=== PATIENT | female | born 1970 | race Two or more races ===

== ENCOUNTER 2025-03-14 16:12 | Inpatient (IN) | payer OTHER ==
[~2025-03-14] VITALS: Ht 152.4 cm; Wt 81.8 kg
[~2025-03-14 16:12] MED LIST: LOSA100T25 PO; MET50T PO
--- NOTE | 2025-03-14 16:27 | ECG ---
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
[2025-03-14 16:42] LABS: Hematocrit 37.9 % (36.0-46.0); Hemoglobin 12.6 g/dL (12.2-16.2); Mean Corpuscular Hemoglobin 28.7 pg (28.0-32.0); Mean Corpuscular Volume 86.3 fL (80.0-100.0); Nucleated Red Blood Cells % 0.1 %
--- NOTE | 2025-03-14 16:45 | ED.PDOC ---
HPI Comments 54 y/o obese F presents with c/c of nonradiating, substernal chest pain, intermittently, for the past 2 days. Pain worsens when laying flat on her back and on her left side and improves when sitting upright. Associated occasional shortness of breath. She reports taking ASA for the past 2 days but none, today, due to taking "cayenne pepper," instead. Denial of any abdominal pain, nausea, vomiting, or further acute symptoms. Past medical history: HLD, HTN, blood clots Past surgical history: stents, benign knee tumor removal Social history: remote tobacco abuse chest pain: bejarano:,rondon. HPI: Poor Historian. 54-year-old female presents to emergency depart for two day history of midsternal chest pain intermittent nonradiating worse when she lays flat better when she sits up. Some occasional associated shortness of breath. Patient has significant cardiac history. REVIEW OF SYSTEMS: CONSTITUTIONAL: Denies acute: fever, diaphoresis, chills, generalized weakness. HEAD: Denies acute: headache, photophobia Eyes: Denies acute: Double vision, vision loss, eye pain, eye discharge. EARS: Denies acute: tinnitus, hearing loss, ear discharge, ear pain, THROAT: Denies acute: sore throat, swelling, difficulty swallowing , pain with swallowing, change in voice. NECK: Denies acute: neck pain, neck swelling, stiff neck. HEART: Denies acute : palpitations, LUNGS: Denies acute: SOB, wheezing, cough, hemoptysis ABDOMEN: Denies acute: abdominal pain, Nausea, Vomiting, diarrhea, melena , hematemesis, hematochezia SKIN: Denies acute: rash, redness, lesions, itchiness. EXTREMITIES: Denies acute: calf pain, numbness, tingling, weakness, denies pain in extremity. Denies acute: Low back pain. Neuro: Denies acute: focal neurological deficit, motor or sensory focal neurological deficit, tremors, seizure like activity, confusion, dizziness, change in mental status, loss of bowel or bladder function, cauda equina like symptoms. : Denies acute: dysuria, hematuria, flank pain, increase in urinary frequency. PSYCH: Denies acute: hallucination, suicidal ideation, homicidal ideation. FEMALE: Denies acute: abnormal vaginal bleeding, foul odor, unusual discharge. PHYSICAL EXAM: General: ---mild-----acute distress, awake and alert. Head: normocephalic, atraumatic. No raccoon's eyes, no liriano sign. Neck: supple, trachea is midline, no swelling. Throat: Normal phonation. Eyes:, no erythema, no purulent discharge, no proptosis, no icterus. Heart: regular rate, regular rhythm, no significant murmur appreciated. Lungs: no apparent respiratory distress, Able to speak in full sentences. No wheezing, no rhonchi, no crackles. No stridors Clear to auscultation bilaterally. Abdomen: non tender to palpation, non distended, soft, no guarding, no rebound, + bowel sounds. Neuro: Awake, Alert, oriented to name, self, situation, follows commands GCS=15. Speech is normal. Skin: no petechia, no purpura, no cyanosis, non-pale, not jaundice. Lower extremities: --no - Pitting edema no deformity, no focal swelling, no calf TTP. Makes eye contact. moves all four extremities. Face: no apparent facial droop. Ambulating in the ED independently. ED COURSE: DISCLAIMER: This medical document was created using an electronic medical record system with voice recognition software and computerized dictation system. Although this document has been carefully reviewed, there might still be some phonetic and typographical errors. Occasional wrong-word or "sound-alike" substitutions may have occurred due to the inherent limitations of voice recognition software. These areas are purely typographical due to imperfections of the software programs and do not reflect any compromise in the patient's medical care. Please read the chart carefully and recognize, using context, where these substitutions have occurred. Chief Complaint: Chest Pain Time Seen by MD: 16:30 Allergies: Coded Allergies: NO KNOWN ALLERGIES (Unverified , 04/08/23) Information Source: Patient Mode of Arrival: Ambulatory EKG EKG : Pulse Rate (adult): 75 [place]: Normal Cardiac Rhythm: NSR Block: None Hypertrophy: None ST: Normal Was a procedure done? Was a procedure done?: No X-Ray, Labs, Meds, VS Vital Signs Date Time Temp Pulse Resp B/P (MAP) Pulse Ox O2 Delivery O2 Flow Rate FiO2 03/14/25 19:22 64 03/14/25 19:00 98.4 60 18 152/81 (104) 99 98.4 03/14/25 19:00 60 18 99 Room Air* 0 21 03/14/25 17:30 68 03/14/25 16:45 75 03/14/25 16:26 75 03/14/25 16:17 98.3 67 18 173/71 98 98.3 Lab Test 03/14/25 19:41 03/14/25 19:02 03/14/25 16:31 Range/Units Urine Color Colorless Yellow Urine Clarity Clear Clear Urine pH 7.0 5.0-9.0 Urine Specific [place] 1.016 1.001-1.035 Urine Protein Negative Negative Urine Ketones Negative Negative Urine Blood Negative Negative /uL Urine Nitrite Negative Negative Urine Bilirubin Negative Negative Urine Urobilinogen Normal Negative mg/dL Urine Leukocyte Esterase Negative Negative /uL Urine RBC 1 0 - 4 /hpf Urine Microscopic WBC < 1 0-5 /HPF Urine Squamous Epithelial Cells Few <5 /hpf Urine Bacteria None seen None Seen /hpf Urine Glucose Normal Normal mg/dL Troponin I High Sensitivity 1041 *H 654 *H </=34 ng/L White Blood Count 5.0 4.4-10.8 10^3/uL Red Blood Count 4.39 4.0-5.20 10^6/uL Hemoglobin 12.6 12.2-16.2 g/dL Hematocrit 37.9 36.0-46.0 % Mean Corpuscular Volume 86.3 80.0-100.0 fL Mean Corpuscular Hemoglobin 28.7 28.0-32.0 pg Mean Corpuscular Hemoglobin Concent 33.3 32.0-36.0 g/dL Red Cell Distribution Width 14.8 H 11.8-14.3 % Platelet Count 233 140-450 10^3/uL Mean Platelet Volume 9.6 6.9-10.8 fL Neutrophils (%) (Auto) 41.9 37.0-80.0 % Lymphocytes (%) (Auto) 48.2 10.0-50.0 % Monocytes (%) (Auto) 6.7 0.0-12.0 % Eosinophils (%) (Auto) 1.6 0.0-7.0 % Basophils (%) (Auto) 1.6 0.0-2.0 % Neutrophils # (Auto) 2.1 1.6-8.6 10 ^3/uL Lymphocytes # (Auto) 2.4 0.4-5.4 10 ^3/uL Monocytes # (Auto) 0.3 0-1.3 10 ^3/uL Eosinophils # (Auto) 0.1 0-0.8 10 ^3/uL Basophils # (Auto) 0.1 0-0.2 10 ^3/uL Nucleated Red Blood Cells 0.1 % Prothrombin Time 10.1 9.3-11.8 sec Prothrombin Time INR 0.95 0.9-1.15 Activated Partial Thromboplast Time 27.6 24.5-34.5 SEC Sodium Level 138 136-145 mmol/L Potassium Level 4.1 3.5-5.1 mmol/L Chloride Level 102 98-107 mmol/L Carbon Dioxide Level 28 20-31 mmol/L Anion Gap 8 5-15 Blood Urea Nitrogen 10 9-23 mg/dL Creatinine 0.77 0.550-1.02 mg/dL Glomerular Filtration Rate Calc 91 >90 mL/min BUN/Creatinine Ratio 13.0 10.0-20.0 Serum Glucose 137 H 74-106 mg/dL Calcium Level 9.8 8.7-10.4 mg/dL Current Medications Medications (Trade) Dose Ordered Sig/Sanket Route Start Time Stop Time Status Last Admin Aspirin (Ecotrin Enteric Coated Tablet) 325 mg ONCE ONCE PO 03/14/25 17:00 03/14/25 17:21 DC 03/14/25 17:34 [place] [id number] Ph: [phone] DIAGNOSTIC IMAGING Diagnostic Imaging Report : [id number] Signed PATIENT: MARIAELENA BEJARANO ACCT: [id number] UNIT: [id number] : 1970 LOC: ER ROOM / BED: / AGE / SEX: 54 / F ADM STATUS: REG ER SERVICE 2104 ORDERING PHYSICIAN: NOLAN HATFIELD MD PROCEDURE(s): CXR1 - CHEST XRAY 1 VIEW REASON: CHEST PAIN ORDER NUMBER(s): [id number], ACCESSION NUMBER(s): [id number] CHEST RADIOGRAPH INDICATION: CHEST PAIN TECHNIQUE: XY CHEST XRAY 1 VIEW Comparison: None FINDINGS: The cardiac silhouette is unremarkable. The lungs demonstrate no pulmonary airspace consolidation. The pulmonary vasculature is prominent. There is no pleural effusion. There is no pneumothorax. Aortic atherosclerotic disease. IMPRESSION: Mild pulmonary vasculature congestion. ATED BY: HEAVENLY GARZA MD DICTATED DATE/TIME: 03/14/251751 SIGNED BY: HEAVENLY GARZA MD SIGNED DATE/TIME: 03/14/251751 CC: Time of 1ST Reevaluation: 16:30 Reevaluation 1ST: Unchanged Time of 2ND Reevaluation: 17:34 (The case was discussed with the [facility] admitting team (HPI, physical exam, labs and diagnostic tests that were available at the time of disposition, ED course, treatment plan) on the phone. They authorized us to keep the patient in our facility for further evaluation and treatment. Patient has NSTEMI. Dr. Contreras--. Authorization number is-- [id number].) Time of 3RD Reevaluation: 20:00 (The case was discussed with the cardiology on- call team (HPI, physical exam, labs and diagnostic tests that were available at the time of disposition, ED course, treatment plan) on the phone. They agreed to follow the patient in consult dr. Pierre. They recommended heparin bolus and a drip. He reviewed the EKG.) Patient Education/Counseling: Diagnosis, Treatment Family Education/Counseling: No Family Present SEPSIS Sepsis Screen Date sepsis recognized/suspect: Mar 14, 2025 Time Sepsis recognized/suspect: 1620 Recent Procedure: No On Antibiotic Therapy: No Respiratory Rate >20: No Heart Rate >90: No Temp<36 C (96.8 F) or >38.3 C: No SBP <90 or MAP <65 mmHG: No New Acute Mental Status Change: No Is the patient on CPAP, BIPAP,: No Physician Orders Chest Xray 1 View (03/14/25 16:21) Troponin-I Hs (03/14/25 19:21) Electrocardigram (03/14/25 19:21) * Cardiology Consult (03/14/25 19:48) Vital Signs Date Time Temp Pulse Resp B/P (MAP) Pulse Ox O2 Delivery O2 Flow Rate FiO2 03/14/25 19:22 64 03/14/25 19:00 98.4 60 18 152/81 (104) 99 98.4 03/14/25 19:00 60 18 99 Room Air* 0 21 03/14/25 17:30 68 03/14/25 16:45 75 03/14/25 16:26 75 03/14/25 16:17 98.3 67 18 173/71 98 98.3 Laboratory Tests Test 03/14/25 16:31 White Blood Count 5.0 10^3/uL (4.4-10.8) Medications Medications Dose Ordered Sig/Sanket Route Start Time Stop Time Status Last Admin Dose Admin Aspirin 325 mg ONCE ONCE PO 03/14/25 17:00 03/14/25 17:21 DC 03/14/25 17:34 Departure 1 Departure Time of Disposition: 16:57 Impression: Primary Impression: Chest pain Additional Impression: NSTEMI (non-ST elevated myocardial infarction) Disposition: ADMITTED INPATIENT Admit to: [facility] Condition: Guarded Discharged With: Self Critical Care Note Critical Care Time?: No Heart Score Heart Score: Heart Score Response (Comments) Value History Slightly Suspicious 0 EKG Normal 0 Age 45-64 1 Risk Factors >3 or Hx ASHD 2 Total 3 I personally scribed for HARRY SEGURA DO ([email or web address]) on 03/14/25 at 16:45. Electronically submitted by Pasha Keller ([email or web address]). I personally scribed for HARRY SEGURA DO ([email or web address]) on 03/14/25 at 17:12. Electronically submitted by Pasha Keller ([email or web address]). I personally scribed for HARRY SEGURA DO ([email or web address]) on 03/14/25 at 21:40. Electronically submitted by Kimberlyn Walters ([email or web address]). HARRY SEGURA DO Mar 14, 2025 16:45
[2025-03-14 16:49] LABS: Chloride 102 mmol/L (98-107); Potassium 4.1 mmol/L (3.5-5.1); Sodium 138 mmol/L (136-145)
[2025-03-14 16:50] LABS: Anion Gap 8 (5-15); Calcium 9.8 mg/dL (8.7-10.4); Carbon Dioxide 28 mmol/L (20-31)
[2025-03-14 16:55] LABS: BUN/Creatinine Ratio 13.0 (10.0-20.0); Blood Urea Nitrogen 10 mg/dL (9-23)
[2025-03-14 16:56] LABS: Glucose 137 mg/dL (74-106)
[2025-03-14] MEDS: ASPirin-EC 325mg tab PO ONE (17:34)
--- NOTE | 2025-03-14 17:54 | DVH ---
CHEST RADIOGRAPH INDICATION: CHEST PAIN TECHNIQUE: XY CHEST XRAY 1 VIEW Comparison: None FINDINGS: The cardiac silhouette is unremarkable. The lungs demonstrate no pulmonary airspace consolidation. The pulmonary vasculature is prominent. There is no pleural effusion. There is no pneumothorax. Aortic atherosclerotic disease. IMPRESSION: Mild pulmonary vasculature congestion.
[2025-03-14 19:00] VITALS: PULSE 60; RESP 18; O2SAT 99
--- NOTE | 2025-03-14 19:26 | ECG ---
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
[2025-03-14 20:00] VITALS: PULSE 56; RESP 18; O2SAT 100
[2025-03-14 20:00] LABS: Urine Protein, UAD Negative (Negative)
[2025-03-14] MEDS ORDERED: ACETAMINOPHEN 325 MG TAB PO PRN (20:00)
[2025-03-14] MEDS ORDERED: HEPARIN SODIUM (PORCINE) 5000 UNITS/ML 1ML VIAL IV ONE ×3 (20:00→21:00)
[2025-03-14] MEDS ORDERED: MORPHINE SULFATE INJ 2 MG/ml SYRG IV PRN (20:00)
[2025-03-14] MEDS ORDERED: NITROGLYCERIN 0.4 MG SL TAB SL PRN (20:00)
[2025-03-14] MEDS ORDERED: HEPARIN DRIP/D5W 100UNITS/ML 250 ML IV SCH ×2 (20:00→21:00)
[2025-03-14] MEDS ORDERED: ONDANSETRON HCL 4 MG/2 ML VIAL IV PRN (20:00)
[2025-03-14 20:24] LABS: Hematocrit 39.0 % (36.0-46.0); Hemoglobin 12.8 g/dL (12.2-16.2); Mean Corpuscular Hemoglobin 28.5 pg (28.0-32.0); Mean Corpuscular Volume 87.0 fL (80.0-100.0)
[2025-03-14 20:40] LABS: INR 0.95 (0.9-1.15); Partial Thromboplastin Time 27.6 SEC (24.5-34.5); Prothrombin Time 10.1 sec (9.3-11.8)
[2025-03-14 21:39] LABS: Total Cells Counted 100.0 (100)
[2025-03-14] MEDS: SODIUM CHLOR 0.9% PF (SALINE LOCK) 10ML VIAL/SYR IV SCH (22:00)
--- NOTE | 2025-03-14 22:11 | DVHHP2 ---
History of Present Illness Reason for Visit: Chest pain History of Present Illness 54-year-old female presents for evaluation of chest pain. Patient reports a two day history of substernal pressure-like nonradiating chest pain with associated shortness for breath. No nausea or vomiting. Patient reports pain worsens when laying flat and sees improvement when sitting up. Currently rates the pain at 3/10 intensity. Past Medical History Hypertension, dyslipidemia, Past Surgical History PTCA, tumor removal Smoke: No ALCOHOL: none Drugs: None Lives: with Family Review of Systems Review of Systems Review of systems are currently negative otherwise addressed in HPI. Allergies: Coded Allergies: NO KNOWN ALLERGIES (Unverified , 04/08/23) Medications Current Medications Medications Dose Ordered Sig/Sanket Route Start Time Stop Time Status Last Admin Dose Admin Heparin Sodium/ Dextrose 250 ml @ 9.216 mls/ hr Q24H IV 03/14/25 20:00 UNV Metoprolol Tartrate 50 mg BID PO 03/14/25 22:00 Losartan Potassium 50 mg DAILY PO 03/15/25 10:00 Ondansetron HCl 4 mg Q4HP PRN IV 03/14/25 20:00 Acetaminophen 650 mg Q6HP PRN PO 03/14/25 20:00 Nitroglycerin 0.4 mg Q5MINP PRN SL 03/14/25 20:00 Morphine Sulfate 2 mg Q30M PRN IV 03/14/25 20:00 Sodium Chloride 10 ml Q8HR IV 03/14/25 22:00 Aspirin 81 mg DAILY PO 03/16/25 10:00 Heparin Sodium/ Dextrose 250 ml @ 9 mls/hr Q24H IV 03/14/25 21:00 Exam Vital Signs Vital Signs Date Time Temp Pulse Resp B/P (MAP) Pulse Ox O2 Delivery O2 Flow Rate FiO2 03/14/25 20:00 56 03/14/25 20:00 98.2 18 165/88 (113) 100 98.2 03/14/25 20:00 Room Air* 0 21 Exam Gen: 54-year-old female in mild distress Skin: Warm, dry, normal color and texture, no rash. HEENT: Normocephalic atraumatic, mucous membranes moist and pink. Neck: Cervical and supraclavicular nodes normal without enlargement, trachea is midline, thyroid gland is normal without masses. Pulmonary: Clear to auscultation and percussion bilaterally. Cardiac: Regular rate and rhythm. No murmur Abdomen: Soft, nontender, nondistended, bowel sounds present all 4 quadrants, no guarding, no rigidity, no organomegaly. Extremities: No cyanosis, clubbing, no edema Neuro: Cranial nerves II through XII grossly intact, normal affect and speech, no focal motor deficits. Labs/Xrays AGE / SEX: 54 / F ADM STATUS: REG ER SERVICE 1621 ORDERING PHYSICIAN: NOLAN HATFIELD MD PROCEDURE(s): CXR1 - CHEST XRAY 1 VIEW REASON: CHEST PAIN ORDER NUMBER(s): [id number], ACCESSION NUMBER(s): [id number] CHEST RADIOGRAPH INDICATION: CHEST PAIN TECHNIQUE: XY CHEST XRAY 1 VIEW Comparison: None FINDINGS: The cardiac silhouette is unremarkable. The lungs demonstrate no pulmonary airspace consolidation. The pulmonary vasculature is prominent. There is no pleural effusion. There is no pneumothorax. Aortic atherosclerotic disease. IMPRESSION: Mild pulmonary vasculature congestion. Labs Test 03/14/25 21:20 03/14/25 20:06 03/14/25 19:41 03/14/25 16:31 Range/Units Troponin I High Sensitivity 1346 *H </=34 ng/L White Blood Count 5.8 4.4-10.8 10^3/uL Red Blood Count 4.48 4.0-5.20 10^6/uL Hemoglobin 12.8 12.2-16.2 g/dL Hematocrit 39.0 36.0-46.0 % Mean Corpuscular Volume 87.0 80.0-100.0 fL Mean Corpuscular Hemoglobin 28.5 28.0-32.0 pg Mean Corpuscular Hemoglobin Concent 32.8 32.0-36.0 g/dL Red Cell Distribution Width 14.8 H 11.8-14.3 % Platelet Count 212 140-450 10^3/uL Mean Platelet Volume 9.6 6.9-10.8 fL Neutrophils (%) (Auto) 37.0-80.0 % Lymphocytes (%) (Auto) 10.0-50.0 % Monocytes (%) (Auto) 0.0-12.0 % Basophils (%) (Auto) 0.0-2.0 % Neutrophils # (Auto) 1.6-8.6 10 ^3/uL Lymphocytes # (Auto) 0.4-5.4 10 ^3/uL Monocytes # (Auto) 0-1.3 10 ^3/uL Differential Total Cells Counted 100.0 100 Neutrophils % (Manual) 31 L 37.0-80.0 Band Neutrophils % (Manual) 0 Lymphocytes % (Manual) 58 H 10.0-50.0 Monocytes % (Manual) 8 0-12 Eosinophils % (Manual) 3 0-7 Basophils % (Manual) 0 0.0-2.0 Metamyelocytes % (manual) 0 Myelocytes % (Manual) 0 Promyelocytes % (Manual) 0 Blast Cells % (Manual) 0 Reactive Lymphocytes 0 Platelet Estimate Adequate Urine Color Colorless Yellow Urine Clarity Clear Clear Urine pH 7.0 5.0-9.0 Urine Specific [place] 1.016 1.001-1.035 Urine Protein Negative Negative Urine Ketones Negative Negative Urine Blood Negative Negative /uL Urine Nitrite Negative Negative Urine Bilirubin Negative Negative Urine Urobilinogen Normal Negative mg/dL Urine Leukocyte Esterase Negative Negative /uL Urine RBC 1 0 - 4 /hpf Urine Microscopic WBC < 1 0-5 /HPF Urine Squamous Epithelial Cells Few <5 /hpf Urine Bacteria None seen None Seen /hpf Urine Glucose Normal Normal mg/dL Eosinophils (%) (Auto) 1.6 0.0-7.0 % Eosinophils # (Auto) 0.1 0-0.8 10 ^3/uL Basophils # (Auto) 0.1 0-0.2 10 ^3/uL Nucleated Red Blood Cells 0.1 % Prothrombin Time 10.1 9.3-11.8 sec Prothrombin Time INR 0.95 0.9-1.15 Activated Partial Thromboplast Time 27.6 24.5-34.5 SEC Sodium Level 138 136-145 mmol/L Potassium Level 4.1 3.5-5.1 mmol/L Chloride Level 102 98-107 mmol/L Carbon Dioxide Level 28 20-31 mmol/L Anion Gap 8 5-15 Blood Urea Nitrogen 10 9-23 mg/dL Creatinine 0.77 0.550-1.02 mg/dL Glomerular Filtration Rate Calc 91 >90 mL/min BUN/Creatinine Ratio 13.0 10.0-20.0 Serum Glucose 137 H 74-106 mg/dL Calcium Level 9.8 8.7-10.4 mg/dL SEPSIS Sepsis Screen Date sepsis recognized/suspect: Mar 14, 2025 Time Sepsis recognized/suspect: 2119 Recent Procedure: No On Antibiotic Therapy: No Respiratory Rate >20: No Heart Rate >90: No Temp<36 C (96.8 F) or >38.3 C: No SBP <90 or MAP <65 mmHG: No New Acute Mental Status Change: No Is the patient on CPAP, BIPAP,: No Physician Orders Chest Xray 1 View (03/14/25 16:21) Electrocardigram (03/14/25 19:21) * Cardiology Consult (03/14/25 19:48) Platelet Monitoring (03/14/25) Heparin Per Standardized Proce (03/14/25:) Discontinue All Im Injections (03/14/25:49) Heparin Drip/D5w 100units/Ml (03/14/25 20:00) Stat Ekg For Chest Pain (03/14/25:49) Npo After Midnight (03/14/25:49) Basic Metabolic Panel (03/15/25 04:00) Metoprolol Tartrate Tablet (Lopressor Ta (03/14/25 22:00) Losartan Tablet (Cozaar Tablet) (03/15/25 10:00) Admit (03/14/25:49) Ondansetron Hcl (Zofran) (03/14/25 20:00) Cardiac Diet-2gna,Lofat,Lochol (03/15/25 Breakfast) Echo 2d Mode Cardiac Dop (03/14/25:49) Condition: Fair (03/14/25:49) Acetaminophen Tablet (Tylenol Tablet) (03/14/25 20:00) Bedrest With Bathroom Privileg (03/14/25:49) Nitroglycerin Sublingual (Ntrostat Subli (03/14/25 20:00) Morphine Sulfate Injection (03/14/25 20:00) Stat Ekg For Chest Pain (03/14/25:49) Notify Md Of Changes From Base (03/14/25 19:49) Network Operations Lead For 24 Hours (03/14/25:49) Emergency Dysrhythmia Protocol (12/19/25 19:49) Rhythm Strips Once Every Shift (03/14/25 19:49) Oxygen By Nasal Cannula (03/14/25 19:49) Pressurization Mechanic (03/14/25 19:58) Blood Pressure (03/14/25 19:58) Pulse Oximetry (03/14/25 19:58) Sodium Chloride Lock (Saline Lock Ns) (03/14/25 22:00) Aspirin Chewable Tablet (03/16/25 10:00) Heparin Drip/D5w 100units/Ml (03/14/25 21:00) Oxygen Per Hour (03/14/25 19:58) Cardiac Rehabilitation - Outpa (03/14/25 ) Vital Signs Date Time Temp Pulse Resp B/P (MAP) Pulse Ox O2 Delivery O2 Flow Rate FiO2 03/14/25 20:00 56 03/14/25 20:00 98.2 56 18 165/88 (113) 100 98.2 03/14/25 20:00 56 18 100 Room Air* 0 21 03/14/25 19:22 64 03/14/25 19:00 98.4 60 18 152/81 (104) 99 98.4 03/14/25 19:00 60 18 99 Room Air* 0 21 03/14/25 17:30 68 03/14/25 16:45 75 03/14/25 16:26 75 03/14/25 16:17 98.3 67 18 173/71 98 98.3 Laboratory Tests Test 03/14/25 16:31 03/14/25 20:06 White Blood Count 5.0 10^3/uL (4.4-10.8) 5.8 10^3/uL (4.4-10.8) Medications Medications Dose Ordered Sig/Sanket Route Start Time Stop Time Status Last Admin Dose Admin Aspirin 325 mg ONCE ONCE PO 03/14/25 17:00 03/14/25 17:21 DC 03/14/25 17:34 325 MG Assessment/Plan Assessment/Plan Assessment NSTEMI Hypertension Plan Admit the patient to telemetry to the hospitalist Cardiology consultation placed by ER provider Continue heparin drip NPO after midnight Continue treatment per orders. Plan discussed with: Patient My Orders Orders - REGINALD GREENFIELD Procedure Category Date Status Time Platelet Monitoring BLAISE 03/14/25 In Process 19:49 Heparin Per BLAISE 03/14/25 In Process Standardized Proce 19:49 Discontinue All Im BLAISE 03/14/25 In Process Injections 19:49 Heparin Drip/D5w PHA 03/14/25 Pending 100units/Ml 20:00 Stat Ekg For Chest BLAISE 03/14/25 In Process Pain 19:49 Npo After Midnight BLAISE 03/14/25 In Process 19:49 Basic Metabolic Panel LAB 03/15/25 Verified 04:00 Metoprolol Tartrate PHA 03/14/25 In Process Tablet (Lopressor Ta 22:00 Losartan Tablet PHA 03/15/25 In Process (Cozaar Tablet) 10:00 Admit ADMIT 03/14/25 Transmitted 19:49 Ondansetron Hcl PHA 03/14/25 In Process (Zofran) 20:00 Cardiac DIET 03/15/25 Transmitted Diet-2gna,Lofat,Lochol Breakfast Echo 2d Mode Cardiac US 03/14/25 Logged DOP 19:49 Condition: Fair BLAISE 03/14/25 In Process 19:49 Acetaminophen Tablet PHA 03/14/25 In Process (Tylenol Tablet) 20:00 Bedrest With Bathroom [facility] 03/14/25 In Process Privileg 19:49 Nitroglycerin [facility] 03/14/25 In Process Sublingual (Ntrostat 20:00 Morphine Sulfate PHA 03/14/25 In Process Injection 20:00 Stat Ekg For Chest BLAISE 03/14/25 In Process Pain 19:49 Notify Of Changes [facility] 03/14/25 In Process From Base 19:49 Network Operations Lead For [facility] 03/14/25 In Process 24 Hours 19:49 Emergency Dysrhythmia [facility] 03/14/25 In Process Protocol 19:49 Rhythm Strips Once [facility] 03/14/25 In Process Every Shift 19:49 Oxygen By Nasal RT 03/14/25 Transmitted Cannula 19:49 Date of Service: Mar 14, 2025 Billing Provider: REGINALD GREENFIELD Common Visit Codes: [id number] INP/OBS CARE (HIGH) REGINALD GREENFIELD Mar 14, 2025 22:11
[2025-03-14 22:15] VITALS: BP 153/90; PULSE 60; RESP 17; TEMP 98; O2SAT 97
[2025-03-14] MEDS ORDERED: hydrALAZINE HCL 20 MG/ML VL IV PRN (22:15)
[2025-03-14 22:42] LABS: HDL Cholesterol 58 mg/dL (40-59)
[2025-03-14 22:43] LABS: Cholesterol 427 mg/dL (< 200); Triglycerides 161 mg/dL (< 150)
[2025-03-14] MEDS: HEPARIN SODIUM (PORCINE) 5000 UNITS/ML 1ML VIAL IV ONE (23:14)
[2025-03-14] MEDS: HEPARIN DRIP/D5W 100UNITS/ML 250 ML IV SCH (23:21)
[2025-03-14] MEDS: METOPROLOL TARTRATE 50 MG TAB PO SCH (23:33)
[2025-03-15] VITALS (9 sets, daily range): BP systolic 109–168; BP diastolic 63–98; PULSE 58–73; RESP 16–20; TEMP 97.6–98.5; O2SAT 97–98
[2025-03-15 05:33] LABS: Nucleated Red Blood Cells % 0.1 %
[2025-03-15 05:36] LABS: Hematocrit 35.7 % (36.0-46.0); Hemoglobin 11.9 g/dL (12.2-16.2); Mean Corpuscular Hemoglobin 28.8 pg (28.0-32.0); Mean Corpuscular Volume 86.5 fL (80.0-100.0)
[2025-03-15 05:47] LABS: Calcium 9.4 mg/dL (8.7-10.4); Chloride 103 mmol/L (98-107); Potassium 4.1 mmol/L (3.5-5.1); Sodium 139 mmol/L (136-145)
[2025-03-15 05:49] LABS: Anion Gap 10 (5-15); Carbon Dioxide 26 mmol/L (20-31)
[2025-03-15 05:54] LABS: BUN/Creatinine Ratio 13.3 (10.0-20.0); Blood Urea Nitrogen 10 mg/dL (9-23)
[2025-03-15 05:55] LABS: Glucose 112 mg/dL (74-106)
[2025-03-15 06:13] LABS: INR 0.98 (0.9-1.15); Prothrombin Time 10.4 sec (9.3-11.8)
[2025-03-15 06:31] LABS: Partial Thromboplastin Time 87.0 SEC (24.5-34.5)
[2025-03-15] MEDS: HEPARIN DRIP/D5W 100UNITS/ML 250 ML IV SCH (06:58)
--- NOTE | 2025-03-15 09:44 | DVHINCON2 ---
Date Seen: Mar 15, 2025 Referring Physician MD Marysol Reason for Consultation Chest pain, NSTEMI History of Present Illness This is a 54-year-old female who presented to the emergency room with a chief complaint of chest pain for three days. Describes her chest pain as substernal, radiating to the neck area, squeezing/pressure-like, intermittent, and associated with mild shortness of breath. She underwent multiple 12 lead electrocardiogram revealing a sinus rhythm with ST depression to inferolateral leads. Serial troponin levels are trending up with latest in the 1,700s ng/L. Denied any active chest pain at time of assessment. She is currently on a heparin drip. Reports a significant medical history for cardiovascular disease including severe coronary artery disease undergoing a successful PTCA with sten placement x 2DES at [facility] in 2018 followed by a PTCA with stent placement x 1 JESSIE at an unknown facility in 2019. She was initially on DAPT then on ASA only which she stopped on her own approximately 8 mos ago. Denies following up in the outpatient setting with a primary equipment sterilizer. Other medical history includes hypertension, dyslipidemia, and obesity Past Medical History Past medical history reviewed. No other significant than mentioned above. Past Surgical History PTCAs x2 including three JESSIE, Right knee (tumor removal) Audelia birch Family History: Diabetes mellitus aunt grandmother FH: CHF (congestive heart failure) mother Family History Family history reviewed. Social History Denies the use of illicit drugs, alcohol, or tobacco use. Reports remote history of cigarette use, quit in 2010. Allergies: Coded Allergies: NO KNOWN ALLERGIES (Unverified , 04/08/23) Home Meds Home medications reviewed. Current Medications Current Medications Medications (Trade) Dose Ordered Sig/Sanket Route PRN Reason Start Time Stop Time Status Last Admin Heparin Sodium/ Dextrose 250 ml @ 9.216 mls/ hr Q24H IV 03/14/25 20:00 Cancel Metoprolol Tartrate (Lopressor Tablet) 50 mg BID PO 03/14/25 22:00 03/14/25 23:33 Losartan Potassium (Cozaar Tablet) 50 mg DAILY PO 03/15/25 10:00 Ondansetron HCl (Zofran) 4 mg Q4HP PRN IV NAUSEA / VOMITING 03/14/25 20:00 Acetaminophen (Tylenol Tablet) 650 mg Q6HP PRN PO PAIN SCALE 1-3 OR TEMP>100.4 03/14/25 20:00 Nitroglycerin (Ntrostat Sublingual) 0.4 mg Q5MINP PRN SL FOR CHEST PAIN 03/14/25 20:00 Morphine Sulfate 2 mg Q30M PRN IV FOR CHEST PAIN 03/14/25 20:00 Sodium Chloride (Saline Lock Ns) 10 ml Q8HR IV 03/14/25 22:00 03/15/25 06:00 Aspirin 81 mg DAILY PO 03/16/25 10:00 Heparin Sodium/ Dextrose 250 ml @ 9 mls/hr Q24H IV 03/14/25 21:00 Cancel Hydralazine HCl (Apresoline Injection) 10 mg Q6HP PRN IV SBP>150 03/14/25 22:15 Heparin Sodium/ Dextrose 250 ml @ 9 mls/hr Q24H IV 03/14/25 23:00 03/15/25 06:34 DC 03/14/25 23:21 Heparin Sodium/ Dextrose 250 ml @ 7 mls/hr Q24H IV 03/15/25 06:45 03/15/25 06:58 Review of Systems Constitutional: No symptom reported Ears, Nose, & Throat: No symptom reported Eyes: No symptom reported Neurological: No symptoms reported Pulmonary/Respiratory: SOB Cardiovascular: Chest pain Gastrointestinal: No symptom reported Genitourinary: No symptom reported Musculoskeletal: No symptom reported Skin: No symptom reported Psychiatric: No symptom reported Endocrine: No symptom reported Hemotologic/Lymphatic: No symptom reported Vital Signs Vital Signs Date Time Temp Pulse Resp B/P (MAP) Pulse Ox O2 Delivery O2 Flow Rate FiO2 03/15/25 08:58 98.5 66 16 122/67 (85) 98 98.5 03/14/25 22:15 Room Air* 0 21 Physical Exam General Appearance: Cooperative. Well developed. Obese. In no acute distress Head Exam: Normal inspection Neck Exam: Normal inspection. Non-tender. Normal alignment Pulmonary/Respiratory: Chest non-tender. Diminished bilateral breath sounds Cardiovascular/Chest: Regular rate and rhythm. S1, S2. Sinus rhythm with ST depression to inferolateral leads. No murmurs. No JVD. Peripheral Pulses: 2+ Radial (R). 2+ Radial (L). 2+ Pedal (R). 2+ Pedal (L) Abdominal Exam: Normal bowel sounds. Soft. Ankle Exam: Negative ankle edema Lower extremities: Negative lower extremity edema Neuro/Mental Status: A&O x4. Coherent Thoughts/Psych: Normal thought pattern. Appropriate mood and affect. Good judgement and insight Appearance: In no acute distress Skin Exam: Normal inspection. Normal color. Warm. Dry Labs/Diagnostic Data Labs Test 03/15/25 04:21 03/14/25 20:06 03/14/25 19:41 Range/Units White Blood Count 6.2 4.4-10.8 10^3/uL Red Blood Count 4.12 4.0-5.20 10^6/uL Hemoglobin 11.9 L 12.2-16.2 g/dL Hematocrit 35.7 L 36.0-46.0 % Mean Corpuscular Volume 86.5 80.0-100.0 fL Mean Corpuscular Hemoglobin 28.8 28.0-32.0 pg Mean Corpuscular Hemoglobin Concent 33.3 32.0-36.0 g/dL Red Cell Distribution Width 14.6 H 11.8-14.3 % Platelet Count 189 140-450 10^3/uL Mean Platelet Volume 10.6 6.9-10.8 fL Neutrophils (%) (Auto) 26.9 L 37.0-80.0 % Lymphocytes (%) (Auto) 62.7 H 10.0-50.0 % Monocytes (%) (Auto) 7.4 0.0-12.0 % Eosinophils (%) (Auto) 2.3 0.0-7.0 % Basophils (%) (Auto) 0.7 0.0-2.0 % Neutrophils # (Auto) 1.7 1.6-8.6 10 ^3/uL Lymphocytes # (Auto) 3.9 0.4-5.4 10 ^3/uL Monocytes # (Auto) 0.5 0-1.3 10 ^3/uL Eosinophils # (Auto) 0.1 0-0.8 10 ^3/uL Basophils # (Auto) 0 0-0.2 10 ^3/uL Nucleated Red Blood Cells 0.1 % Prothrombin Time 10.4 9.3-11.8 sec Prothrombin Time INR 0.98 0.9-1.15 Activated Partial Thromboplast Time 87.0 *H 24.5-34.5 SEC Sodium Level 139 136-145 mmol/L Potassium Level 4.1 3.5-5.1 mmol/L Chloride Level 103 98-107 mmol/L Carbon Dioxide Level 26 20-31 mmol/L Anion Gap 10 5-15 Blood Urea Nitrogen 10 9-23 mg/dL Creatinine 0.75 0.550-1.02 mg/dL Glomerular Filtration Rate Calc 94 >90 mL/min BUN/Creatinine Ratio 13.3 10.0-20.0 Serum Glucose 112 H 74-106 mg/dL Calcium Level 9.4 8.7-10.4 mg/dL Differential Total Cells Counted 100.0 100 Neutrophils % (Manual) 31 L 37.0-80.0 Band Neutrophils % (Manual) 0 Lymphocytes % (Manual) 58 H 10.0-50.0 Monocytes % (Manual) 8 0-12 Eosinophils % (Manual) 3 0-7 Basophils % (Manual) 0 0.0-2.0 Metamyelocytes % (manual) 0 Myelocytes % (Manual) 0 Promyelocytes % (Manual) 0 Blast Cells % (Manual) 0 Reactive Lymphocytes 0 Platelet Estimate Adequate D-Dimer, Quantitative 0.85 H 0.0-0.49 mg/L FEU B-Type Natriuretic Peptide 60.63 0-100 pg/mL Triglycerides Level 161 H < 150 mg/dL Cholesterol Level 427 H < 200 mg/dL LDL Cholesterol 371 H < 100 mg/dL HDL Cholesterol 58 40-59 mg/dL Thyroid Stimulating Hormone (TSH) 2.25 0.55-4.78 uIU/mL Urine Color Colorless Yellow Urine Clarity Clear Clear Urine pH 7.0 5.0-9.0 Urine Specific [place] 1.016 1.001-1.035 Urine Protein Negative Negative Urine Ketones Negative Negative Urine Blood Negative Negative /uL Urine Nitrite Negative Negative Urine Bilirubin Negative Negative Urine Urobilinogen Normal Negative mg/dL Urine Leukocyte Esterase Negative Negative /uL Urine RBC 1 0 - 4 /hpf Urine Microscopic WBC < 1 0-5 /HPF Urine Squamous Epithelial Cells Few <5 /hpf Urine Bacteria None seen None Seen /hpf Urine Glucose Normal Normal mg/dL Assessment Non ST-elevation myocardial infarction, type 1 Rule out structural heart disease Diabetes mellitus (hemoglobin A1c 7.3%), newly diagnosed Hypertension Dyslipidemia Remote Hx of tobacco use Suboptimal medical therapy Obesity Plan/Recommendation (Dr. Pierre) Scheduled for cardiac catheterization and coronary angiogram on 03/17/2025. All risks and benefits of the procedure were discussed in full detail with the patient agreeing for intervention. All questions answered. In the meantime, continue heparin drip, DAPT, and BB XL. Loaded on ASA and clopidogrel. Monitor ECG changes closely and notify accordingly. Continue ACS protocol. Further orders per clinical course. Thank you for allowing us to participate in this patient's care. Please call if you have any questions or concerns. This medical document was created using an electronic medical record system with voice recognition software and computerized dictation system. Although this document has been carefully reviewed, there might still be some phonetic and typographical errors. Occasional wrong-word or ``sound-alike substitutions may have occurred due to the inherent limitations of voice recognition software. These areas are purely typographical due to imperfections of the software programs and do not reflect any compromise in the patient's medical care. Please read the chart carefully and recognize, using context, where these substitutions have occurred. Plan discussed with: Patient, Other NYHA Physical activity limitations: NA Date of Service: Mar 15, 2025 Billing Provider: ARCENIO SIEGEL Cardiology Common Codes: [id number] CARE 30-74 MIN ARCENIO SIEGEL Mar 15, 2025 09:44
[2025-03-15] MEDS: LOSARTAN POTASSIUM 50 MG TAB PO SCH (11:24)
[2025-03-15 13:53] LABS: INR 1.0 (0.9-1.15); Partial Thromboplastin Time 52.7 SEC (24.5-34.5); Prothrombin Time 10.6 sec (9.3-11.8)
[2025-03-15] MEDS: CLOPIDOGREL BISULFATE 75 MG TAB PO ONE (14:53)
[2025-03-15] MEDS: FUROSEMIDE 20 MG/2 ML VIAL IV ONE (14:54)
--- NOTE | 2025-03-15 15:20 | DVHSR ---
APPROVED REPORT EXAM: Two-dimensional and M-mode echocardiogram with Doppler and color Doppler. Blood Pressure: 122/67 mmHg INDICATION Chest Pain RISK FACTORS Height: 5'0, Weight: 169 DIMENSIONS LVDd 3.7 (3.8-5.7cm) LA (2D) 3.3 (1.9-4.0cm) Aortic Root 2.9 (2.0-3.7cm) LVDs 2.5 (2.5-4.0cm) LA (MM) (1.9-4.0cm) Aortic Cusp Exc 1.6 (1.5-2.0cm) EF (%) 55.0 (55-70%) Rt. Atrium 3.5 (1.9-4.0cm) Asc. Aorta 2.6 cm IVSd 0.9 (0.7-1.1cm) RV (D) 3.5 (1.8-2.4cm) PWd 1.0 (0.7-1.1cm) Mitral Valve Mitral Mitral Stenosis E wave 0.70m/s MV Mean GR. mmHg A wave 0.82m/s MV Peak GR. 151mmHg E/A ratio 0.9 2D MVA cm2 DECEL Time 183ms PRESS 1/2 Time ms Aortic Valve Aortic Valve Aortic Stenosis V1 0.75m/s AO Mean GR. 3mmHg V2 1.23m/s AO Peak GR. 6mmHg LVOT Diameter 1.7 (1.8-2.4cm) Doppler YANETH 1.38cm2 Pulmonic Valve V2 0.78m/s Tricuspid Valve TR Velocity 2.00m/s RVSP 19mmHg Conclusion 1-Normal left ventricle systolic function with estimated ejection fraction of 55%, normal LV wall motion 2-Mild right ventricle dilatation with normal systolic function and estimated RVSP of 20-25 mmHg 3-Trace mitral and tricuspid regurgitation
--- NOTE | 2025-03-15 17:42 | DVHPN2 ---
Subjective Patient denies any chest pain currently on heparin drip. Left heart catheterization has been scheduled for Monday. Patient is unstable to be transferred to [place] because of acute NSTEMI. 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 Medications Current Medications Medications Dose Ordered Sig/Sanket Route Start Time Stop Time Status Last Admin Dose Admin Heparin Sodium/ Dextrose 250 ml @ 9.216 mls/ hr Q24H IV 03/14/25 20:00 Cancel Losartan Potassium 50 mg DAILY PO 03/15/25 10:00 03/15/25 11:24 50 MG Ondansetron HCl 4 mg Q4HP PRN IV 03/14/25 20:00 Acetaminophen 650 mg Q6HP PRN PO 03/14/25 20:00 Nitroglycerin 0.4 mg Q5MINP PRN SL 03/14/25 20:00 Morphine Sulfate 2 mg Q30M PRN IV 03/14/25 20:00 Sodium Chloride 10 ml Q8HR IV 03/14/25 22:00 03/15/25 14:56 10 ML Aspirin 81 mg DAILY PO 03/16/25 10:00 Heparin Sodium/ Dextrose 250 ml @ 9 mls/hr Q24H IV 03/14/25 21:00 Cancel Hydralazine HCl 10 mg Q6HP PRN IV 03/14/25 22:15 Heparin Sodium/ Dextrose 250 ml @ 7 mls/hr Q24H IV 03/15/25 06:45 03/15/25 06:58 7 MLS/HR Atorvastatin Calcium 80 mg HS PO 03/15/25 22:00 Clopidogrel Bisulfate 75 mg DAILY PO 03/16/25 10:00 Metoprolol Succinate 50 mg DAILY PO 03/16/25 10:00 Furosemide 20 mg DAILY IV 03/16/25 10:00 Laboratory Results Laboratory Tests 03/15/25 04:21 Chemistry Test 03/15/25 04:21 Calcium Level 9.4 mg/dL (8.7-10.4) Coagulation Test 03/14/25 20:06 03/15/25 04:21 03/15/25 13:25 D-Dimer, Quantitative 0.85 mg/L FEU (0.0-0.49) H Prothrombin Time 10.4 sec (9.3-11.8) 10.6 sec (9.3-11.8) Prothrombin Time INR 0.98 (0.9-1.15) 1.00 (0.9-1.15) Activated Partial Thromboplast Time 87.0 SEC (24.5-34.5) *H 52.7 SEC (24.5-34.5) H Lipid panel Test 03/14/25 20:06 Cholesterol Level 427 mg/dL (< 200) H HDL Cholesterol 58 mg/dL (40-59) Triglycerides Level 161 mg/dL (< 150) H Cardiac Markers Test 03/14/25 20:06 B-Type Natriuretic Peptide 60.63 pg/mL (0-100) HgA1c, TSH Test 03/14/25 20:06 03/15/25 04:21 Thyroid Stimulating Hormone (TSH) 2.25 uIU/mL (0.55-4.78) Hemoglobin A1c 7.3 % A1C (<5.7) H Urinalysis Test 03/14/25 19:41 Urine Color Colorless (Yellow) Urine Clarity Clear (Clear) Urine pH 7.0 (5.0-9.0) Urine Specific [place] 1.016 (1.001-1.035) Urine Protein Negative (Negative) Urine Ketones Negative (Negative) Urine Blood Negative /uL (Negative) Urine Nitrite Negative (Negative) Urine Bilirubin Negative (Negative) Urine Urobilinogen Normal mg/dL (Negative) Urine Leukocyte Esterase Negative /uL (Negative) Urine RBC 1 /hpf (0 - 4) Urine Microscopic WBC < 1 /HPF (0-5) Urine Squamous Epithelial Cells Few /hpf (<5) Urine Bacteria None seen /hpf (None Seen) Urine Glucose Normal mg/dL (Normal) Assessment/Plan Assessment/Plan 54-year-old female with a known history of hypertension, dyslipidemia, morbid obesity class one, coronary artery disease status post PCI with a one stent at [facility] in 2019, was on DAPT but currently on aspirin, found to have 1. NSTEMI type 1 2. Known CAD status post PCI with two stents() 3. Hypertension 4. Dyslipidemia 5. Hyperglycemia with a new onset of diabetes mellitus type 2 6. Morbid obesity classI -continue aspirin, statin, heparin drip, patient is too unstable to be transferred to [facility] we will follow up Cardiology recommendations -left heart catheterization has been scheduled for Monday. Plan discussed with: Patient Problem List: (1) NSTEMI (non-ST elevated myocardial infarction) (2) Chest pain Date of Service: Mar 15, 2025 Billing Provider: AMADOR POTTER MD Common Visit Codes: [id number] INP/OBS CARE(HIGH) AMADOR POTTER MD Mar 15, 2025 17:42
[2025-03-15 19:56] LABS: INR 0.99 (0.9-1.15); Partial Thromboplastin Time 51.0 SEC (24.5-34.5); Prothrombin Time 10.5 sec (9.3-11.8)
[2025-03-15] MEDS: ATORVASTATIN 20 MG TAB PO SCH (21:35)
[2025-03-16] VITALS (9 sets, daily range): BP systolic 100–133; BP diastolic 56–84; PULSE 60–80; RESP 15–19; TEMP 97–98.1; O2SAT 95–98
[2025-03-16 02:16] LABS: INR 0.97 (0.9-1.15); Partial Thromboplastin Time 54.7 SEC (24.5-34.5); Prothrombin Time 10.3 sec (9.3-11.8)
[2025-03-16 07:10] LABS: Hematocrit 36.0 % (36.0-46.0); Hemoglobin 12.0 g/dL (12.2-16.2); Mean Corpuscular Hemoglobin 28.7 pg (28.0-32.0); Mean Corpuscular Volume 86.1 fL (80.0-100.0)
[2025-03-16 07:15] LABS: Chloride 99 mmol/L (98-107); Potassium 4.1 mmol/L (3.5-5.1); Sodium 138 mmol/L (136-145)
[2025-03-16 07:16] LABS: Anion Gap 13 (5-15); Carbon Dioxide 26 mmol/L (20-31)
[2025-03-16 07:17] LABS: Calcium 9.4 mg/dL (8.7-10.4)
[2025-03-16 07:21] LABS: BUN/Creatinine Ratio 15.4 (10.0-20.0); Blood Urea Nitrogen 12 mg/dL (9-23)
[2025-03-16 07:30] LABS: Glucose 122 mg/dL (74-106)
[2025-03-16 08:22] LABS: Total Cells Counted 100.0 (100)
[2025-03-16] MEDS: FUROSEMIDE 20 MG/2 ML VIAL IV SCH (08:49)
[2025-03-16] MEDS: CLOPIDOGREL BISULFATE 75 MG TAB PO SCH (08:50)
[2025-03-16] MEDS: METOPROLOL SUCCINATE XL 50 MG TAB PO SCH (08:51)
--- NOTE | 2025-03-16 12:54 | ECG ---
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
--- NOTE | 2025-03-16 13:40 | DVHPN2 ---
Consult Progress Note Date Seen: Mar 16, 2025 Subjective Review of Systems: CVS:Normal, RESPIRATORY:Normal, NEURO:Normal Objective vital signs Vital Sign Date Time Temp Pulse Resp B/P (MAP) Pulse Ox O2 Delivery O2 Flow Rate FiO2 03/16/25 12:45 97.2 60 18 133/81 (98) 97 97.2 03/16/25 08:15 Room Air* 0 21 Total Intake and Output 03/15/25 03/15/25 03/16/25 15:00 23:00 07:00 Intake Total 580 ml 650 ml Balance 580 ml 650 ml medications Current Medications Medications Dose Ordered Sig/Sanket Route Start Time Stop Time Status Last Admin Dose Admin Heparin Sodium/ Dextrose 250 ml @ 9.216 mls/ hr Q24H IV 03/14/25 20:00 Cancel Losartan Potassium 50 mg DAILY PO 03/15/25 10:00 03/15/25 11:24 50 MG Ondansetron HCl 4 mg Q4HP PRN IV 03/14/25 20:00 Acetaminophen 650 mg Q6HP PRN PO 03/14/25 20:00 Nitroglycerin 0.4 mg Q5MINP PRN SL 03/14/25 20:00 Morphine Sulfate 2 mg Q30M PRN IV 03/14/25 20:00 Sodium Chloride 10 ml Q8HR IV 03/14/25 22:00 03/16/25 06:18 10 ML Aspirin 81 mg DAILY PO 03/16/25 10:00 03/16/25 08:50 81 MG Heparin Sodium/ Dextrose 250 ml @ 9 mls/hr Q24H IV 03/14/25 21:00 Cancel Hydralazine HCl 10 mg Q6HP PRN IV 03/14/25 22:15 Heparin Sodium/ Dextrose 250 ml @ 7 mls/hr Q24H IV 03/15/25 06:45 03/16/25 08:48 7 MLS/HR Atorvastatin Calcium 80 mg HS PO 03/15/25 22:00 03/15/25 21:35 80 MG Clopidogrel Bisulfate 75 mg DAILY PO 03/16/25 10:00 03/16/25 08:50 75 MG Metoprolol Succinate 50 mg DAILY PO 03/16/25 10:00 03/16/25 08:51 50 MG Furosemide 20 mg DAILY IV 03/16/25 10:00 03/16/25 08:49 20 MG Examination: LUNGS:Normal, CVS:Normal, NEURO:Normal laboratory and microbiology Laboratory Tests 03/16/25 06:21 Test 03/16/25 06:21 Range/Units Serum Glucose 122 H 74-106 mg/dL Problem List/Assessment/Plan Problem List/Assessment/Plan Non ST-elevation myocardial infarction, type 1 Coronary artery disease status post PCIs x 2 including 3DES Diabetes mellitus (hemoglobin A1c 7.3%), newly diagnosed Hypertension Dyslipidemia Remote Hx of tobacco use Suboptimal medical therapy Obesity Plan/Recommendation (Dr. Willson) Scheduled for cardiac catheterization and coronary angiogram on 03/17/2025. In the meantime, continue heparin drip, DAPT, and BB XL. Loaded on ASA and clopidogrel. Monitor ECG changes closely and notify accordingly. Continue ACS protocol. A transthoracic echocardiogram revealed LVEF 55% with normal LV wall motion and trace mitral/tricuspid regurgitation. Initiate insulin scale. Further orders per clinical course. Thank you for allowing us to participate in this patient's care. Please call if you have any questions or concerns. This medical document was created using an electronic medical record system with voice recognition software and computerized dictation system. Although this document has been carefully reviewed, there might still be some phonetic and typographical errors. Occasional wrong-word or ``sound-alike substitutions may have occurred due to the inherent limitations of voice recognition software. These areas are purely typographical due to imperfections of the software programs and do not reflect any compromise in the patient's medical care. Please read the chart carefully and recognize, using context, where these substitutions have occurred. Plan discussed with: Patient, Other Date of Service: Mar 16, 2025 Billing Provider: ARCENIO SIEGEL Cardiology Common Codes: [id number] HOSP CARE(High ARCENIO SIEGEL Mar 16, 2025 13:40
[2025-03-16] MEDS ORDERED: DEXTROSE (50%) 50ML SYRG IV PRN (13:45)
--- NOTE | 2025-03-16 16:58 | DVHPN2 ---
Subjective Patient denies any chest pain currently on heparin drip. Left heart catheterization has been scheduled for Monday. Patient is unstable to be transferred to [place] because of acute NSTEMI. 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 Medications Current Medications Medications Dose Ordered Sig/Sanket Route Start Time Stop Time Status Last Admin Dose Admin Heparin Sodium/ Dextrose 250 ml @ 9.216 mls/ hr Q24H IV 03/14/25 20:00 Cancel Losartan Potassium 50 mg DAILY PO 03/15/25 10:00 03/15/25 11:24 50 MG Ondansetron HCl 4 mg Q4HP PRN IV 03/14/25 20:00 Acetaminophen 650 mg Q6HP PRN PO 03/14/25 20:00 Nitroglycerin 0.4 mg Q5MINP PRN SL 03/14/25 20:00 Morphine Sulfate 2 mg Q30M PRN IV 03/14/25 20:00 Sodium Chloride 10 ml Q8HR IV 03/14/25 22:00 03/16/25 14:00 10 ML Aspirin 81 mg DAILY PO 03/16/25 10:00 03/16/25 08:50 81 MG Heparin Sodium/ Dextrose 250 ml @ 9 mls/hr Q24H IV 03/14/25 21:00 Cancel Hydralazine HCl 10 mg Q6HP PRN IV 03/14/25 22:15 Heparin Sodium/ Dextrose 250 ml @ 7 mls/hr Q24H IV 03/15/25 06:45 03/16/25 08:48 7 MLS/HR Atorvastatin Calcium 80 mg HS PO 03/15/25 22:00 03/15/25 21:35 80 MG Clopidogrel Bisulfate 75 mg DAILY PO 03/16/25 10:00 03/16/25 08:50 75 MG Metoprolol Succinate 50 mg DAILY PO 03/16/25 10:00 03/16/25 08:51 50 MG Furosemide 20 mg DAILY IV 03/16/25 10:00 03/16/25 08:49 20 MG Diagnostic Test (Pha) 1 strip ACHS 03/16/25 17:00 Insulin Human Regular HS SC 03/16/25 22:00 Insulin Human Regular AC SC 03/16/25 17:00 Dextrose 50 ml UD PRN IV 03/16/25 13:45 Laboratory Results Laboratory Tests 03/16/25 06:21 Chemistry Test 03/16/25 06:21 Calcium Level 9.4 mg/dL (8.7-10.4) Coagulation Test 03/15/25 19:27 03/16/25 01:44 Prothrombin Time 10.5 sec (9.3-11.8) 10.3 sec (9.3-11.8) Prothrombin Time INR 0.99 (0.9-1.15) 0.97 (0.9-1.15) Activated Partial Thromboplast Time 51.0 SEC (24.5-34.5) H 54.7 SEC (24.5-34.5) H Urinalysis Test 03/14/25 19:41 Urine Color Colorless (Yellow) Urine Clarity Clear (Clear) Urine pH 7.0 (5.0-9.0) Urine Specific [place] 1.016 (1.001-1.035) Urine Protein Negative (Negative) Urine Ketones Negative (Negative) Urine Blood Negative /uL (Negative) Urine Nitrite Negative (Negative) Urine Bilirubin Negative (Negative) Urine Urobilinogen Normal mg/dL (Negative) Urine Leukocyte Esterase Negative /uL (Negative) Urine RBC 1 /hpf (0 - 4) Urine Microscopic WBC < 1 /HPF (0-5) Urine Squamous Epithelial Cells Few /hpf (<5) Urine Bacteria None seen /hpf (None Seen) Urine Glucose Normal mg/dL (Normal) Assessment/Plan Assessment/Plan 54-year-old female with a known history of hypertension, dyslipidemia, morbid obesity class one, coronary artery disease status post PCI with a one stent at [facility] in 2019, was on DAPT but currently on aspirin, found to have 1. NSTEMI type 1 2. Known CAD status post PCI with two stents() 3. Hypertension 4. Dyslipidemia 5. Hyperglycemia with a new onset of diabetes mellitus type 2 6. Morbid obesity classI -continue aspirin, statin, heparin drip, patient is too unstable to be transferred to [facility] we will follow up Cardiology recommendations -left heart catheterization has been scheduled for Monday. Plan discussed with: Patient, Other Date of Service: Mar 16, 2025 Billing Provider: AMADOR POTTER MD Common Visit Codes: [id number] INP/OBS CARE(HIGH) AMADOR POTTER MD Mar 16, 2025 16:58
[2025-03-16] MEDS: ACCU-CHEK COMFORT CURVE STRIP VI SCH (17:00)
[2025-03-16] MEDS: InsuLIN REG 1unit/0.01ml Soln (100units/ml) SC SCH ×2 (17:00→22:00)
[2025-03-17] VITALS (13 sets, daily range): BP systolic 113–152; BP diastolic 66–84; PULSE 56–91; RESP 12–19; TEMP 97.7–98.2; O2SAT 96–99
[2025-03-17 07:16] LABS: Hematocrit 36.0 % (36.0-46.0); Hemoglobin 11.9 g/dL (12.2-16.2); Mean Corpuscular Hemoglobin 28.6 pg (28.0-32.0); Mean Corpuscular Volume 86.0 fL (80.0-100.0)
[2025-03-17 07:22] LABS: Chloride 104 mmol/L (98-107); Potassium 4.0 mmol/L (3.5-5.1); Sodium 138 mmol/L (136-145)
[2025-03-17 07:23] LABS: Anion Gap 7 (5-15); Calcium 9.3 mg/dL (8.7-10.4); Carbon Dioxide 27 mmol/L (20-31)
[2025-03-17 07:28] LABS: BUN/Creatinine Ratio 15.9 (10.0-20.0); Blood Urea Nitrogen 13 mg/dL (9-23)
[2025-03-17 07:29] LABS: Glucose 122 mg/dL (74-106)
[2025-03-17] MEDS: HEPARIN IN NS 1000Units/500mL 1,500 ML ONE (07:34)
[2025-03-17] MEDS: IODIXANOL 320MG/ML 100ML BTL IV ONE (07:34)
[2025-03-17 07:36] LABS: INR 0.98 (0.9-1.15); Partial Thromboplastin Time 42.4 SEC (24.5-34.5); Prothrombin Time 10.4 sec (9.3-11.8)
--- NOTE | 2025-03-17 08:25 | CONS ---
Pharmacy Clinical Information: INCREASED HEPARIN RATE TO 9 ML/HR OR 900 UNITS/HR SINCE APTT = 42.4 @0647 ON 03/17 PER RX PROTOCOL. NEXT APTT ANTOINE 6 HOURS FROM STARTING NEW HEPARIN RATE. CHRIS URRUTIA AWARE HEPARIN RATE INCREASED FROM 7 ML/HR TO 9 ML/HR AND WILL RESUME HEPARIN NEW RATE WHEN PT COMES BACK FROM [facility]. MARY REEVES PHARMACIST Mar 17, 2025 08:25
[2025-03-17] MEDS: ANGIOMAX 250 MG VIAL IV ONE (08:31)
[2025-03-17] MEDS: HEPARIN SODIUM (PORCINE) 5000 UNITS/ML 1ML VIAL ONE (08:31)
[2025-03-17] MEDS: MIDAZOLAM HCL 2MG/2ML 2ml VIAL (1mg/ml) ONE (08:32)
[2025-03-17] MEDS: LIDOCAINE 2%HCL (LOCAL ANESTH.) INJ 20ML MDV ONE (08:32)
[2025-03-17] MEDS: VERAPAMIL 2.5MG/ML INJ 2ML VIAL IV ONE (08:32)
[2025-03-17] MEDS: SODIUM CHL 0.9% 0 ML ONE (08:32)
[2025-03-17] MEDS ORDERED: NITROGLYCERIN 50MG/250ML 250 ML IV ONE (08:32)
[2025-03-17] MEDS: fentaNYL CITRATE 100 MCG/2 ML VL ONE (08:32)
[2025-03-17 08:55] LABS: Total Cells Counted 100.0 (100)
--- NOTE | 2025-03-17 09:24 | DVHPN2 ---
Progress Note Date Seen: Mar 17, 2025 Resident Creating Document: LIZETH SALEEM RESIDENT Medical Necessity Reason Pt with a Central, PICC or Fol: No Subjective Review of Systems S/p coronary angiography No chest pain, no hematoma at the site of access Patient is hemodynamically stable Objective vital signs Vital Sign Date Time Temp Pulse Resp B/P (MAP) Pulse Ox O2 Delivery O2 Flow Rate FiO2 03/17/25 07:45 17 96 Room Air* 0 21 03/17/25 05:00 97.7 70 121/66 (84) 97.7 Total Intake and Output 03/16/25 03/16/25 03/17/25 15:00 23:00 07:00 Intake Total 924 ml 520 ml Balance 924 ml 520 ml medications Current Medications Medications Dose Ordered Sig/Sanket Route Start Time Stop Time Status Last Admin Dose Admin Heparin Sodium/ Dextrose 250 ml @ 9.216 mls/ hr Q24H IV 03/14/25 20:00 Cancel Losartan Potassium 50 mg DAILY PO 03/15/25 10:00 03/15/25 11:24 50 MG Ondansetron HCl 4 mg Q4HP PRN IV 03/14/25 20:00 Acetaminophen 650 mg Q6HP PRN PO 03/14/25 20:00 Nitroglycerin 0.4 mg Q5MINP PRN SL 03/14/25 20:00 Morphine Sulfate 2 mg Q30M PRN IV 03/14/25 20:00 Sodium Chloride 10 ml Q8HR IV 03/14/25 22:00 03/17/25 05:59 10 ML Aspirin 81 mg DAILY PO 03/16/25 10:00 03/17/25 07:46 81 MG Heparin Sodium/ Dextrose 250 ml @ 9 mls/hr Q24H IV 03/14/25 21:00 Cancel Hydralazine HCl 10 mg Q6HP PRN IV 03/14/25 22:15 Atorvastatin Calcium 80 mg HS PO 03/15/25 22:00 03/16/25 21:59 80 MG Clopidogrel Bisulfate 75 mg DAILY PO 03/16/25 10:00 03/17/25 07:46 75 MG Metoprolol Succinate 50 mg DAILY PO 03/16/25 10:00 03/16/25 08:51 50 MG Furosemide 20 mg DAILY IV 03/16/25 10:00 03/16/25 08:49 20 MG Diagnostic Test (Pha) 1 strip ACHS 03/16/25 17:00 03/16/25 17:00 1 STRIP Insulin Human Regular HS SC 03/16/25 22:00 Insulin Human Regular AC SC 03/16/25 17:00 Dextrose 50 ml UD PRN IV 03/16/25 13:45 Heparin Sodium/ Dextrose 250 ml @ 9 mls/hr Q24H IV 03/17/25 08:30 Examination Skin - Patients skin is warm and dry. HEENT - normocephalic, atraumatic, moist mucous membranes, no scleral icterus, no conjunctival pallor. Neck - full ROM, no LAD, no JVD Pulmonary - B/L clear breath sounds without any wheezing, rales or stridor cardiovascular - regular S1,S2 heard, 3rd heart sound likely S4. peripheral pulses normal radial 2+, pedal 2+. GI - soft, nontender abdomen. no hepatospleenomegaly. Bowel sounds normoactive Neurological - Patient is A/O X 4 . Bilateral upper extremity strength 5/5, bilateral lower extremity strength 5/5, no facial droop, normal speech, no tremor, no sensory deficiets. laboratory and microbiology Laboratory Tests 03/17/25 06:47 Test 03/17/25 06:47 Range/Units Serum Glucose 122 H 74-106 mg/dL Problem List/Assessment/Plan Problem List/Assessment/Plan Non ST-elevation myocardial infarction, type 1 Triple-vessel [place] coronary artery disease Coronary artery disease status post PCIs x 2 including 3DES Diabetes mellitus (hemoglobin A1c 7.3%), newly diagnosed Hypertension Dyslipidemia Remote Hx of tobacco use Suboptimal medical therapy Obesity Plan/Recommendation Coronary angiography revealed triple-vessel [place] coronary artery disease involving the proximal LAD, MANAGER PULMONARY of RCA and significant InStent restenosis of OM1 and OM2. Recommend evaluation by Cardiothoracic surgery for CABG Continue on heparin drip per ACS protocol Continue on therapy with aspirin, stop Plavix since patient would need to be off Plavix for [address] surgery, last dose of plavix received on 03/17/[address] [facility] TTE revealed LVEF 55% with normal LV wall motion and trace mitral/tricuspid regurgitation. Goals of care discussed with the patient for over 16 minutes. Time Spent: 31 minutes Plan discussed with Dr. Willson Plan discussed with: Patient LIZETH SALEEM RESIDENT Mar 17, 2025 09:24
--- NOTE | 2025-03-17 12:05 | ECG ---
[facility] Test Date: 2025-03-14 Test Time: 17:30:10 Pat Name: MARIAELENA HERNADEZ Department: ED Room: [facility] B Gender: F Fountain Clerk: ZEFERINO : 1970 Requested By: NOLAN HATFIELD Order Number: [id number] Reading MD: Hemant Knight Measurements Intervals [place] Rate: 68 P: 40 MS: 169 QRS: 14 QRSD: 100 T: 256 QT: 396 QTc: 422 Interpretive Statements Sinus rhythm Borderline repolarization abnormality Minimal ST elevation, anterior leads Electronically Signed On 03-17-2025 15:23:55 PST by Hemant Knight Please click the below link to view image of tracing.
--- NOTE | 2025-03-17 12:44 | DVHDS2 ---
Discharge Summary Date of Admission Mar 14, 2025 at 19:49 Date of Discharge: Mar 17, 2025 Labs/Diagnostic Data: Laboratory Results Test 03/17/25 06:47 03/16/25 06:21 03/15/25 04:21 03/14/25 20:06 White Blood Count 5.1 10^3/uL (4.4-10.8) Red Blood Count 4.18 10^6/uL (4.0-5.20) Hemoglobin 11.9 g/dL (12.2-16.2) Hematocrit 36.0 % (36.0-46.0) Mean Corpuscular Volume 86.0 fL (80.0-100.0) Mean Corpuscular Hemoglobin 28.6 pg (28.0-32.0) Mean Corpuscular Hemoglobin Concent 33.2 g/dL (32.0-36.0) Red Cell Distribution Width 14.9 % (11.8-14.3) Platelet Count 211 10^3/uL (140-450) Mean Platelet Volume 9.6 fL (6.9-10.8) Neutrophils (%) (Auto) % (37.0-80.0) Lymphocytes (%) (Auto) % (10.0-50.0) Monocytes (%) (Auto) % (0.0-12.0) Basophils (%) (Auto) % (0.0-2.0) Neutrophils # (Auto) 10 ^3/uL (1.6-8.6) Lymphocytes # (Auto) 10 ^3/uL (0.4-5.4) Monocytes # (Auto) 10 ^3/uL (0-1.3) Differential Total Cells Counted 100.0 (100) Neutrophils % (Manual) 26 (37.0-80.0) Band Neutrophils % (Manual) 0 Lymphocytes % (Manual) 65 (10.0-50.0) Monocytes % (Manual) 7 (0-12) Eosinophils % (Manual) 2 (0-7) Basophils % (Manual) 0 (0.0-2.0) Metamyelocytes % (manual) 0 Myelocytes % (Manual) 0 Promyelocytes % (Manual) 0 Blast Cells % (Manual) 0 Reactive Lymphocytes 0 Platelet Estimate Adequate Prothrombin Time 10.4 sec (9.3-11.8) Prothrombin Time INR 0.98 (0.9-1.15) Activated Partial Thromboplast Time 42.4 SEC (24.5-34.5) Sodium Level 138 mmol/L (136-145) Potassium Level 4.0 mmol/L (3.5-5.1) Chloride Level 104 mmol/L (98-107) Carbon Dioxide Level 27 mmol/L (20-31) Anion Gap 7 (5-15) Blood Urea Nitrogen 13 mg/dL (9-23) Creatinine 0.82 mg/dL (0.550-1.02) Glomerular Filtration Rate Calc 84 mL/min (>90) BUN/Creatinine Ratio 15.9 (10.0-20.0) Serum Glucose 122 mg/dL (74-106) Calcium Level 9.3 mg/dL (8.7-10.4) Troponin I High Sensitivity 639 ng/L (</=34) Eosinophils (%) (Auto) 2.3 % (0.0-7.0) Eosinophils # (Auto) 0.1 10 ^3/uL (0-0.8) Basophils # (Auto) 0 10 ^3/uL (0-0.2) Nucleated Red Blood Cells 0.1 % Hemoglobin A1c 7.3 % A1C (<5.7) D-Dimer, Quantitative 0.85 mg/L FEU (0.0-0.49) B-Type Natriuretic Peptide 60.63 pg/mL (0-100) Triglycerides Level 161 mg/dL (< 150) Cholesterol Level 427 mg/dL (< 200) LDL Cholesterol 371 mg/dL (< 100) HDL Cholesterol 58 mg/dL (40-59) Thyroid Stimulating Hormone (TSH) 2.25 uIU/mL (0.55-4.78) Test 03/14/25 19:41 Urine Color Colorless (Yellow) Urine Clarity Clear (Clear) Urine pH 7.0 (5.0-9.0) Urine Specific [place] 1.016 (1.001-1.035) Urine Protein Negative (Negative) Urine Ketones Negative (Negative) Urine Blood Negative /uL (Negative) Urine Nitrite Negative (Negative) Urine Bilirubin Negative (Negative) Urine Urobilinogen Normal mg/dL (Negative) Urine Leukocyte Esterase Negative /uL (Negative) Urine RBC 1 /hpf (0 - 4) Urine Microscopic WBC < 1 /HPF (0-5) Urine Squamous Epithelial Cells Few /hpf (<5) Urine Bacteria None seen /hpf (None Seen) Urine Glucose Normal mg/dL (Normal) Other Laboratory Tests 03/17/25 06:47 Brief Hx & Hospital Course: see dictated note Condition at Discharge: Fair Final Diagnosis/Problems List cad Discharge Disposition: Acute Care Facility Discharge Instruct/Medications Diet: Consistent carbohydrate, Cardiac 2g Na,low cholest Activity: No Restrictions, As Tolerated Follow Up/Referral: dale rondon Medications: per may Discharge Statement: "Patient was advised to return to the ER or call 911 if any headaches, dizziness, shortness of breath, chest pain, abdominal pain, bleeding, fevers, or worsening of medical condition. Patient was counseled about treatment plan, medications, possible side effects, patientverbalized understanding. All questions were answered to the best of my ability. This discharge took greater then 30 minutes in planning, reviewing documentation, counseling the patient, and discussing with other team members." ASSESSMENT ASSESSMENT Assessment cad Date of Service: Mar 17, 2025 Billing Provider: REGINALD BAUTISTA MD Common Visit Codes: [id number] CARE 30-74 MIN REGINALD BAUTISTA MD Mar 17, 2025 12:43
[2025-03-17] MEDS: HEPARIN DRIP/D5W 100UNITS/ML 250 ML IV SCH (15:08)
--- NOTE | 2025-03-17 16:27 | DVHOP2 ---
Operative Report - 2 Report Details Date: 03/17/25 Preop Diagnosis: NSTEMI with prior history of PCI Postop Diagnosis: Three-vessel [place] coronary artery disease Surgeon: Heidi Machado MD Anesthesiologist: Moderate sedation Anesthesia: Local Consent: The patient was informed of the risks and benefits of the procedure. These in clude but are not limited to complications of anesthesia, postoperative infection, incomplete relief of symptoms, recurrence of symptoms, damage to blood vessels, nerves and tendons, deep venous thrombosis, pulmonary embolism and possible need for repeat surgery in the future. Complications: None apparent Estimated Blood Loss: 5 ml Findings: Coronary angiography: Dominance: Right Left main: There is 30% distal left main stenosis. Gives rise to LAD and LCX. There is STEPHON 3 flow LAD : There is 85% proximal stenosis followed by diffuse disease mid to distal vessel. Gives rise to multiple diagonal branches that have diffuse disease. There is STEPHON 3 flow in the body of LAD. LCx: There is 60% in stent restenosis (ISR) of a large OM1. There is 90% in stent restenosis (ISR) off a large OM2. There is TIMI3 flow RCA: Dominant coronary that is known to be CASHIER SUPERVISOR. There is [id number] collaterals with retrograde minimal filling of distal RCA. Summary: - three-vessel [place] coronary artery disease involving proximal LAD and CASHIER SUPERVISOR of RCA with significant ISR of OM 1 and OM2. - right femoral arteriotomy hemostasis via manual compression Recommendations: - given young age and in setting of three-vessel disease recommend evaluation by cardiac surgery for CABG - If patient is not a surgical candidate or decides against CABG complex PCI to LAD and left circumflex system should be planned - continue DAPT while pending CT surgery evaluation - continue heparin drip per ACS protocol for72 hours post admission Indications for Surgery: NSTEMI with chest pain in the setting of prior PCI Name of Procedure Performed Coronary angiography Procedure Details Procedure Details: After informed consent was obtained patient was brought to catheterization lab. She was prepped and draped in sterile fashion. Under ultrasound and fluoroscopic guidance using micropuncture needle right common femoral artery was accessed. Micropuncture needle was wired and a 4 Chinese catheter was placed. The wire was exchanged with an 035 wire. The catheter was exchanged for a 6 Chinese femoral sheath that was placed in the right common femoral artery. Next a 6 Chinese JL4 diagnostic catheter was used to engage left coronary system. Standard angiographic views were obtained. Given known chronic total occlusion (CASHIER SUPERVISOR) of RCA based on angiography in 2019 right coronary system angiography was not done. After all wires and catheters were removed. Manual compression was applied and successful hemostasis of right femoral artery was achieved. Patient tolerated the procedure well. She was transferred to postop area in stable condition. Condition Fair Disposition Still a Patient Date of Service: Mar 17, 2025 Billing Provider: HEIDI MACHADO MD Cardiology Common Codes: PROCEDURE ONLY Cardiology Procedure Codes: 47326-RLXT HEART CATH W/INTRA INJ HEIDI MACHADO MD Mar 17, 2025 16:26
--- NOTE | 2025-03-17 18:49 | DVHDS ---
DATE OF DISCHARGE: 03/17/2025 HISTORY OF PRESENT ILLNESS: The patient is a 54-year-old lady who is admitted with complaints of chest pain and shortness of breath and has a history of hypertension, hyperlipidemia, and coronary artery disease. HOSPITAL COURSE: The patient had elevated troponin levels of up to 1346. Her LDL was very high at 371. The patient had an echocardiogram done that showed normal ejection fraction of 55%. The patient underwent coronary angiography that showed evidence of triple vessel disease. She will now be transferred to [place] for consideration of CABG. FINAL DIAGNOSES: * Acute myocardial infarction status post coronary angiography with need for coronary artery bypass graft. * Previous history of coronary artery disease with stents. * Diabetes mellitus. * Hypertension. * Hyperlipidemia. * Obesity. Critical care time spent including discussion with websphere commerce consultant and paperwork was 39 minutes. MD GINA Bedoya/DOT TID: [id number] RECEIPT: [id number]
[2025-03-17 21:51] LABS: INR 0.98 (0.9-1.15); Partial Thromboplastin Time 50.7 SEC (24.5-34.5); Prothrombin Time 10.4 sec (9.3-11.8)
[2025-03-18] VITALS (7 sets, daily range): BP systolic 117–134; BP diastolic 55–92; PULSE 72–86; RESP 16–18; TEMP 36.7; O2SAT 97–99
[2025-03-18 04:01] LABS: Hematocrit 35.4 % (36.0-46.0); Hemoglobin 11.5 g/dL (12.2-16.2); Mean Corpuscular Hemoglobin 28.5 pg (28.0-32.0); Mean Corpuscular Volume 87.8 fL (80.0-100.0); Nucleated Red Blood Cells % 0.2 %
[2025-03-18 04:12] LABS: Albumin 3.9 g/dL (3.2-4.8); Anion Gap 9 (5-15); BUN/Creatinine Ratio 25.0 (10.0-20.0); Bilirubin, Total 0.4 mg/dL (0.2-1.0); Blood Urea Nitrogen 17 mg/dL (9-23); Calcium 9.0 mg/dL (8.7-10.4); Carbon Dioxide 23 mmol/L (20-31); Chloride 105 mmol/L (98-107); Potassium 4.2 mmol/L (3.5-5.1); Sodium 137 mmol/L (136-145); Total Protein 7.1 g/dL (5.7-8.2)
[2025-03-18 04:16] LABS: Alanine Aminotransferase 41 U/L (7-40); Alkaline Phosphatase 121 U/L (46-116); Glucose 122 mg/dL (74-106)
[2025-03-18 04:30] LABS: INR 0.97 (0.9-1.15); Partial Thromboplastin Time 53.0 SEC (24.5-34.5); Prothrombin Time 10.3 sec (9.3-11.8)
[2025-03-18 10:56] LABS: INR 1.02 (0.9-1.15); Prothrombin Time 10.8 sec (9.3-11.8)
[2025-03-18 10:58] LABS: Partial Thromboplastin Time 72.5 SEC (24.5-34.5)
--- NOTE | 2025-03-18 11:06 | CONS ---
Pharmacy Clinical Information: HEPARIN DRIP, DVT PROTOCOL @10:20 APTT 72.5 - NO BOLUS / NO CHANGE, CONTINUE HEPARIN DRIP AT RATE 900 UNITS/HR 3 CONSECUTIVE APTT THERAPEUTIC => APTT EVERY 24 HRS NEXT APTT DRAW SCHEDULED @0500 PER RX PROTOCOL CONFIRMED AND READ BACK WITH GAYATHRI [facility] RES[facility] Mar 18, 2025 11:06
--- NOTE | 2025-03-18 11:22 | DVHPN2 ---
Progress Note Date Seen: Mar 18, 2025 Medical Necessity Reason Pt with a Central, PICC or Fol: No Subjective Patient reports: No new complaints Review of Systems: HEENT:Normal, CVS:Normal, RESPIRATORY:Normal, GI:Normal, :Normal, MSK:Normal, NEURO:Normal Objective vital signs Vital Sign Date Time Temp Pulse Resp B/P (MAP) Pulse Ox O2 Delivery O2 Flow Rate FiO2 03/18/25 09:47 79 125/55 03/18/25 09:00 98.0 18 97 98.0 03/18/25 08:00 Room Air* 0 21 Total Intake and Output 03/17/25 03/17/25 03/18/25 15:00 23:00 07:00 Intake Total 236 ml 794 ml Balance 236 ml 794 ml medications Current Medications Medications Dose Ordered Sig/Sanket Route Start Time Stop Time Status Last Admin Dose Admin Heparin Sodium/ Dextrose 250 ml @ 9.216 mls/ hr Q24H IV 03/14/25 20:00 Cancel Losartan Potassium 50 mg DAILY PO 03/15/25 10:00 03/18/25 09:47 50 MG Ondansetron HCl 4 mg Q4HP PRN IV 03/14/25 20:00 Acetaminophen 650 mg Q6HP PRN PO 03/14/25 20:00 Nitroglycerin 0.4 mg Q5MINP PRN SL 03/14/25 20:00 Morphine Sulfate 2 mg Q30M PRN IV 03/14/25 20:00 Sodium Chloride 10 ml Q8HR IV 03/14/25 22:00 03/18/25 05:51 10 ML Aspirin 81 mg DAILY PO 03/16/25 10:00 03/18/25 09:47 81 MG Heparin Sodium/ Dextrose 250 ml @ 9 mls/hr Q24H IV 03/14/25 21:00 Cancel Hydralazine HCl 10 mg Q6HP PRN IV 03/14/25 22:15 Atorvastatin Calcium 80 mg HS PO 03/15/25 22:00 03/17/25 21:44 80 MG Metoprolol Succinate 50 mg DAILY PO 03/16/25 10:00 03/18/25 09:47 50 MG Diagnostic Test (Pha) 1 strip ACHS 03/16/25 17:00 03/16/25 17:00 1 STRIP Insulin Human Regular HS SC 03/16/25 22:00 Insulin Human Regular AC SC 03/16/25 17:00 Dextrose 50 ml UD PRN IV 03/16/25 13:45 Heparin Sodium/ Dextrose 250 ml @ 9 mls/hr Q24H IV 03/17/25 08:30 03/18/25 01:41 9 MLS/HR Examination: GENERAL:Normal, HEENT:Normal, NECK:Normal, LUNGS:Normal, CVS:Normal, ABDOMEN:Normal, MSK:Normal, SKIN:Normal, NEURO:Normal, :Normal laboratory and microbiology Laboratory Tests 03/18/25 03:24 Test 03/18/25 03:24 Range/Units Serum Glucose 122 H 74-106 mg/dL Problem List/Assessment/Plan Problem List/Assessment/Plan * Acute myocardial infarction status post coronary angiography with need for coronary artery bypass graft. * Previous history of coronary artery disease with stents. * Diabetes mellitus. * Hypertension. * severe Hyperlipidemia. * Obesity. await transfer to [place] advance care planning- full code-time spent 19 mins Plan discussed with: Patient My Orders My Orders Orders - REGINALD BAUTISTA MD Procedure Category Date Status Time * Sales Program Coordinator CONS 03/17/25 Transmitted Consult Discharge DISCHARGE 03/18/25 Transmitted 11:10 * Sales Program Coordinator CONS 03/18/25 Transmitted Consult Date of Service: Mar 18, 2025 Billing Provider: REGINALD BAUTISTA MD Common Visit Codes: [id number] INP/OBS CARE(HIGH) Secondary Visit Codes: [id number] CARE PLAN 30 MINUTES REGINALD BAUTISTA MD Mar 18, 2025 11:22
== END 2025-03-18 18:59 | disposition short-term general hospital (02) | DRG 282 ==
LOC: ER 16:12 → OVERFLOW 19:49 → TELE-WESTW 22:14
PROVIDERS: ADMIT Internal Medicine; ATTEND Internal Medicine
PROC: 4A023N7 Measurement of Cardiac Sampling and Pressure, Left Heart, Percutaneous Approach (ICD-10-PCS; principal; 2025-03-17)
PROC: B211YZZ Fluoroscopy of Multiple Coronary Arteries using Other Contrast (ICD-10-PCS; 2025-03-17)
DX: I21.4 Non-ST elevation (NSTEMI) myocardial infarction (principal); E11.65 Type 2 diabetes mellitus with hyperglycemia; E66.01 Morbid (severe) obesity due to excess calories; I10 Essential (primary) hypertension; E78.5 Hyperlipidemia, unspecified; I25.10 Atherosclerotic heart disease of native coronary artery without angina pectoris; Z68.33 Body mass index [BMI] 33.0-33.9, adult; Z79.82 Long term (current) use of aspirin; Z79.899 Other long term (current) drug therapy; Z82.49 Family history of ischemic heart disease and other diseases of the circulatory system; Z83.3 Family history of diabetes mellitus; Z87.891 Personal history of nicotine dependence
CPT/HCPCS: 36415; 71045; 80048; 80053; 80061; 81001; 83036; 83880; 84443; 84484; 85007; 85025; 85027; 85379; 85610; 85730; 93005; 93306; 93458; 99152; G0378; J2250; Q9967